=== PATIENT | female | born 1960 | race Caucasian/White ===

== ENCOUNTER 2024-10-24 06:01 | Observation (INO) | payer BC ==
[2024-10-24] VITALS (7 sets, daily range): BP systolic 123–129; BP diastolic 77–79; TEMP 97.3–97.9; O2SAT 93–97
[~2024-10-24] VITALS: Ht 165.1 cm; Wt 81.6 kg
[~2024-10-24 06:01] MED LIST: AZEL1SPR3; COLA100C5 PO; ESOM20CA25 PO; ESTR62CR; FLUTISP; JARD1TAB PO; LORA-753 PO
[2024-10-24] MEDS ORDERED: LIDOCAINE 2% 100 MG/5 ML SDV (FOR ANES.) As Ordered ONE (07:23)
[2024-10-24] MEDS ORDERED: ONDANSETRON 4MG 2ML VIAL As Ordered ONE (07:23)
[2024-10-24] MEDS ORDERED: dexAMETHasone 4 MG/ML 1 ML VIAL As Ordered ONE (07:23)
[2024-10-24] MEDS ORDERED: ROCURONIUM BROMIDE 50MG/5ML VIAL As Ordered ONE (07:23)
[2024-10-24] MEDS ORDERED: MIDAZOLAM INJ 2 MG/2 ML VIAL As Ordered ONE (07:24)
[2024-10-24] MEDS ORDERED: dexmedeTOMIDine (4 MCG/ML) 200 MCG/50 ML BTL As Ordered ONE (07:26)
[2024-10-24] MEDS: HEPARIN SOD 5000 UNITS/ML 1 ML VIAL/SYRINGE SQ ONE (07:58)
[2024-10-24] MEDS: ceFAZolin SOD 2 GM IV ONCE IV ONE (08:00)
[2024-10-24] MEDS ORDERED: LACRILUBE (AKWA TEARS) OPHTH OINT 3.5 GM As Ordered ONE (08:18)
[2024-10-24] MEDS ORDERED: ACETAMINOPHEN 1000MG/100ML IV BAG As Ordered ONE (08:18)
[2024-10-24] MEDS ORDERED: PHENYLephrine 500MCG 5ML (100MCG/ML) SYRINGE As Ordered ONE (08:41)
[2024-10-24] MEDS ORDERED: SUGAMMADEX SODIUM 500 MG/5 ML VIAL As Ordered ONE (09:19)
[2024-10-24] MEDS ORDERED: HYDROmorphone HCL 2 MG/ML 1 ML VIAL As Ordered ONE (09:19)
[2024-10-24] MEDS: GENTAMICIN SULF 80 MG/2 ML VIAL As Ordered ONE (09:51)
[2024-10-24] MEDS ORDERED: PERCOCET 5MG/325MG TAB PO PRN (11:55)
[2024-10-24] MEDS ORDERED: ACETAMINOPHEN 325 MG TAB PO PRN (11:55)
[2024-10-24] MEDS: ONDANSETRON 4MG 2ML VIAL IV PRN ×2 (13:03→17:06)
[2024-10-24] MEDS: LR 1,000 ML IV SCH ×2 (15:14→15:22)
[2024-10-24] MEDS: ceFAZolin SODIUM 2 GM in DEXTROSE 5% (D5W) ADV/MINI-BAG 50 ML IV SCH (15:23)
[2024-10-24] MEDS ORDERED: HOME MED LIST COMPLETE! XX SCH (15:40)
[2024-10-24] MEDS: traMADol 50 MG TAB PO PRN (20:07)
[2024-10-25 04:26] VITALS: BP 132/76; TEMP 98.1; O2SAT 99
[2024-10-25] MEDS ORDERED: TRAM50TA2 PO (09:28)
[2024-10-25 12:00] VITALS: BP_SYST 125; BP_SYST 128; BP_DIAS 78; BP_DIAS 79; TEMP 97.5; TEMP 98.1; O2SAT 98
== END 2024-10-25 12:00 | disposition home or self-care (01) ==
LOC: M SDC 06:01 → M RR INP 06:02 → M MS5PR 16:00
PROVIDERS: ADMIT Plastic Surgery Surgery of the Hand; ATTEND Plastic Surgery Surgery of the Hand
DX: N62 Hypertrophy of breast (principal); N65.1 Disproportion of reconstructed breast; Z85.3 Personal history of malignant neoplasm of breast; N64.89 Other specified disorders of breast; Z92.3 Personal history of irradiation; Z79.899 Other long term (current) drug therapy; E11.9 Type 2 diabetes mellitus without complications; Z88.1 Allergy status to other antibiotic agents; Z88.8 Allergy status to other drugs, medicaments and biological substances
CPT/HCPCS: 19316; 19318; 88305; 96365; 96366; 96375; 96376; J0131; J0665; J0666; J0690; J1100; J1171; J1580; J2250; J2371; J2405; J2765; J3010